=== PATIENT | male | born 1965 | race Caucasian/White ===

== ENCOUNTER → 2020-02-01 | Outpatient (CLI) | payer OTHER | LOC: LAB 08:13 | PROVIDERS: ATTEND Internal Medicine Cardiovascular Disease | DX: Z20.828 Contact with and (suspected) exposure to other viral communicable diseases (principal) | CPT/HCPCS: 36415; U0003 ==

== ENCOUNTER → 2020-02-06 | Outpatient (CLI) | payer OTHER | END | disposition home or self-care (01) | LOC: LAB 12:18 | PROVIDERS: ATTEND Internal Medicine Cardiovascular Disease | DX: Z20.828 Contact with and (suspected) exposure to other viral communicable diseases (principal) | CPT/HCPCS: C9803; U0003; 36415 ==

== ENCOUNTER → 2020-06-23 | Outpatient (CLI) | payer OTHER | LOC: LAB 07:20 | PROVIDERS: ATTEND Internal Medicine Cardiovascular Disease | DX: J02.9 Acute pharyngitis, unspecified (principal); Z20.828 Contact with and (suspected) exposure to other viral communicable diseases | CPT/HCPCS: U0003 ==

== ENCOUNTER → 2021-02-24 | Outpatient (CLI) | payer OTHER | LOC: LAB 15:39 | PROVIDERS: ATTEND Internal Medicine Cardiovascular Disease | DX: U07.1 COVID-19 (principal); R05 Cough; R51.9 Headache, unspecified; J02.9 Acute pharyngitis, unspecified | CPT/HCPCS: U0003 ==

== ENCOUNTER → 2021-04-15 | Outpatient (CLI) | payer BC ==
--- NOTE | 2021-04-15 13:40 | RAD ---
EXAM: XR CHEST 2V 04/15/2021 7:45 AM CLINICAL INDICATION: Shortness of breath status post Covid COMPARISON: None TECHNIQUE: PA and lateral views of the chest FINDINGS: The heart and mediastinum are normal. Lungs are well-expanded and clear. No consolidatio n, pleural effusion, or pneumothorax. There is an old internally fixed right clavicle fracture. IMPRESSION: No acute cardiopulmonary abnormality. Electronically signed by: Sandra Dumont MD (04/15/2021 1:38 PM) [id number]
== END ==
LOC: RAD 07:40
PROVIDERS: ATTEND Internal Medicine
DX: R06.02 Shortness of breath (principal); Z86.16 Personal history of COVID-19
CPT/HCPCS: 71046

== ENCOUNTER 2021-08-28 09:02 | Emergency (ER) | payer BC ==
[~2021-08-28] VITALS: Ht 177.8 cm; Wt 70.0 kg
[2021-08-28 09:15] VITALS: BP 144/86
[2021-08-28] MEDS ORDERED: SULF1TAB24 PO (09:30)
[2021-08-28] MEDS ORDERED: SMZ/TMP 800/160MG TABLET. PO ONE (09:30)
--- NOTE | 2021-08-28 09:30 | PHYS DOC ---
Past History Past Surgical History: No Surgical History Alcohol Use: None General Adult EDM: Chief Complaint: ABSCESS HPI: HPI: 56-year-old male presents with abscess of the right lower leg. The patient has had a cellulitis and developing abscess for a couple of days. He got much bigger overnight. He got a little bit of drainage but it continues to be increasing. He has been on Keflex for 2 days. Denies fever or chills. He has no other complaints at this time. Review of Systems: Review of Systems: Constitutional: Denies fever or chills Eyes: Denies change in visual acuity HENT: Denies nasal congestion or sore throat Respiratory: Denies cough or shortness of breath Cardiovascular: Denies chest pain or edema GI: Denies abdominal pain, nausea, vomiting, bloody stools or diarrhea : Denies dysuria Musculoskeletal: Denies back pain or joint pain Integument: Abscess and cellulitis of the right lower leg Neurologic: Denies headache, focal weakness or sensory changes Endocrine: Denies polyuria or polydipsia Lymphatic: Denies swollen glands Psychiatric: Denies depression or anxiety Allergies: Allergies: Allergies Coded Allergies Type Severity Reaction Last Updated Verified No Known Drug Allergies 08/28/21 No Physical Exam: PE: Constitutional: Well developed, well nourished, no acute distress, non-toxic appearance. [] HENT: Normocephalic, atraumatic, bilateral external ears normal, oropharynx moist, no oral exudates, nose normal. [] Eyes: PERRLA, EOMI, conjunctiva normal, no discharge. [] Neck: Normal range of motion, no tenderness, supple, no stridor. [] Cardiovascular:Heart rate regular rhythm, no murmur [] Lungs & Thorax: Bilateral breath sounds clear to auscultation [] Abdomen: Bowel sounds normal, soft, no tenderness, no masses, no pulsatile masses. [] Skin: 4 cm x 4 cm hot, erythematous area of the skin of the right lower leg with 1 cm central fluctuant area consistent with abscess. [] Back: No tenderness, no CVA tenderness. [] Extremities: No tenderness, no cyanosis, no clubbing, ROM intact, no edema. [] Neurologic: Alert and oriented X 3, normal motor function, normal sensory function, no focal deficits noted. [] Psychologic: Affect normal, judgement normal, mood normal. [] Current Patient Data: Vital Signs: Vital Signs Date Time Temp Pulse Resp B/P (MAP) Pulse Ox O2 Delivery O2 Flow Rate FiO2 08/28/21 09:15 97.6 61 16 144/86 (105) 98 Room Air EKG: EKG: [] Radiology/Procedures: Radiology/Procedures: [] Heart Score: C/O Chest Pain: N/A Risk Factors: Risk Factors: DM, Current or recent (<one month) smoker, HTN, HLP, family histo ry of CAD, obesity. Risk Scores: Score 0 - 3: 2.5% MACE over next 6 weeks - Discharge Home Score 4 - 6: 20.3% MACE over next 6 weeks - Admit for Clinical Observation Score 7 - 10: 72.7% MACE over next 6 weeks - Early Invasive Strategies Course & Med Decision Making: Course & Med Decision Making Pertinent Labs and Imaging studies reviewed. (See chart for details) The patient had an abscess and I performed an I&D. See note below for details. I will switch the patient from Keflex to Bactrim given the purulent drainage. We will give the first dose in the emergency room. He is stable for discharge at this time. [] Dragon Disclaimer: Dragon Disclaimer: This electronic medical record was generated, in whole or in part, using a voice recognition dictation system. Incision and Drainage Indication: Abscess of the right lower leg Procedure: I obtained verbal consent for the patient for incision and drainage of his right lower leg abscess. The skin was cleansed with alcohol. No anesthesia was used. I made a 4 mm incision with a #11 blade scalpel. There was purulent drainage. I then probed the area with a sterile Q-tip shaft to break up loculations. There was further purulent drainage. A clean dry dressing was applied. The patient tolerated the procedure well. Complications: [None] Departure Departure: Impression: Primary Impression: Cellulitis and abscess of leg Disposition: HOME / SELF CARE / HOMELESS Condition: STABLE Referrals: CYRIL FRAUSTO MD (PCP) Patient Instructions: Abscess, Care After Scripts Sulfamethoxazole/Trimethoprim (BACTRIM DS TABLET) 1 Each Tablet 1 TAB PO BID for cellulitis for 7 Days, #14 TAB 0 Refills Prov: ARIC JORDAN DO 08/28/21 ARIC JORDAN DO Aug 28, 2021 09:30
== END 2021-08-28 09:35 | disposition home or self-care (01) ==
LOC: ER 09:02
DX: L02.415 Cutaneous abscess of right lower limb (principal); L03.115 Cellulitis of right lower limb
CPT/HCPCS: 10060; 99283